=== PATIENT | female | born 1970 | race American Indian/Alaskan Native ===

== ENCOUNTER 2018-06-01 18:42 | Emergency (ER) | payer MEDICARE ==
--- NOTE | 2018-06-01 19:29 | Emergency Department Report ---
Eye Injury/Foreign Body - HPI Duration: 3 Days Eye Location: Left (eyelid) Severity: Moderate (5/10) Tetanus Status: Up to Date Eye Symptoms: Eye Pain: Yes (left eyelid 5/10), Blurred Vision: No, Eye Redness: Yes (left upper eyelid), Grinding/Hammering Metal: No, Used Eye Protection: No, Contact Lens Use: No, Recalls Injury: No, Photophobia: No Other History: This is a 48-year-old female here report that she has been having swelling to her left upper eyelid for about 3 days. She said swelling is getting worse. Denies any change in vision. Denies any drainage from eyes. She says she has been putting cold compresses on but it is not getting any better. Tetanus vaccine is up-to-date. Denies any foreign body sensation in eye or any injury to eye. Denies any fever or chills. Denies any nasal congestion cough or runny nose. Denies any earache or sore throat. No medication taken prior to coming to the emergency room. Pain is 5/10 feels sore worse with blinking and no alleviating factors. ED Review of Systems ROS: Stated complaint: EYE SWOLLEN Other details as noted in HPI Constitutional: denies: chills, fever Eyes: eye pain (left eyelid). denies: eye discharge, vision change ENT: denies: ear pain, throat pain, congestion Respiratory: denies: cough, shortness of breath, wheezing Cardiovascular: denies: chest pain, palpitations Musculoskeletal: denies: back pain, joint swelling, arthralgia Skin: denies: rash Neurological: denies: headache ED Past Medical Hx - Past Medical History Previous Medical History?: Yes Additional medical history: Chrons - Surgical History Past Surgical History?: Yes Additional Surgical History: partial hysterectomy - Family History Family history: hypertension - Social History Smoking Status: Current Every Day Smoker Substance Use Type: None - Medications Home Medications: Home Medications Medication Instructions Recorded Confirmed Last Taken Type Gentamicin 0.3% Ophth Oint 1 applicatio OP Q6H 7 Days #1 tube 06/01/18 Unknown Rx Eye Injury Exam - Exam General: Vital signs noted. No distress. Alert and acting appropriately. - Visual Acuity Left Vision Acuity Degree: 20/30 Eye Exam: Left Lid Foreign Body (left upper lid swollen with mild cellulitis and small induration to Center. No drainage noted. No fluctuance. Tenderness to palpate.), Both EOMI, Neither Injection, Neither Chemosis, Neither Abnormal Pupil, Neither Eye Foreign Body, Neither Mucous Discharge, Neither Purulent Discharge, Neither Corneal Edema, Neither Photophobia Exam: Funduscopic eye exam normal bilateral Right Vision Acuity Degree: 20/25 Eye Exam: Both EOMI, Neither Injection, Neither Chemosis, Neither Abnormal Pupil, Neither Eye Foreign Body, Neither Lid Foreign Body, Neither Mucous Discharge, Neither Purulent Discharge, Neither Corneal Edema, Neither Photophobia Bilateral Vision Acuity Degree: 20/25 Eye Exam: Both EOMI, Neither Injection, Neither Chemosis, Neither Abnormal Pupil, Neither Eye Foreign Body, Neither Lid Foreign Body, Neither Mucous Discharge, Neither Corneal Edema, Neither Photophobia ED Course Vital Signs 06/01/18 18:51 Temperature 98.9 F Pulse Rate 89 Respiratory 18 Rate Blood Pressure 112/71 O2 Sat by Pulse 98 Oximetry - Reevaluation(s) Reevaluation #1: 06/01/18 19:35 Patient is stable throughout ED course ED Medical Decision Making - Medical Decision Making This is a 48-year-old female here report swelling to her left eyelid that getting worse. Her vision is stable and physical findings for or Hordeolum left upper eyelid. I discussed the patient diagnosis treatment plan and need to follow up with molder helper in 2 days. I discussed the patient that she needs to apply warm compresses to affected area 3 times a day followed by gentamicin ophthalmic ointment and she voiced understanding. Patient discharged home in stable condition with prescription for gentamicin ophthalmic and to follow up with molder helper. - Differential Diagnosis trauma, Chalazon, hordeolum, simple stye Critical care attestation.: If time is entered above; I have spent that time in minutes in the direct care of this critically ill patient, excluding procedure time. ED Disposition Clinical Impression: Hordeolum externum (stye) Qualifiers: Laterality: left Eyelid: upper Qualified Code(s): H00.014 - Hordeolum externum left upper eyelid Disposition: - TO HOME OR SELFCARE Is pt being admited?: No Does the pt Need Aspirin: No Condition: Stable Instructions: Cellulitis (ED), Stye (ED) Additional Instructions: Please keep affected area clean and dry Apply warm compresses to affected area 4 times a day and after each warm compresses apply antibiotic ointment eyelid. If here vision become infected, please see molder helper. Prescriptions: Gentamicin 0.3% Ophth Oint 1 applicatio OP Q6H 7 Days #1 tube Referrals: DESTINEY BARROSO [Primary Care Provider] - 3-5 Days [facility] [Outside] - 3-5 Days TSERING MOJICA MD [Staff Physician] - 06/04/18 Forms: Work/School Release Form(ED)
== END 2018-06-01 19:49 | disposition home or self-care (01) ==
LOC: ED 18:42
CPT/HCPCS: 99281; 99282